=== PATIENT | female | born 1985 | race Two or more races ===

== ENCOUNTER 2017-05-09 04:45 | Inpatient (IN) | payer SELFPAY ==
[~2017-05-09] VITALS: Ht 154.9 cm; Wt 63.3 kg
[2017-05-09 05:38] VITALS: Ht 154.9 cm; Wt 63.3 kg
[2017-05-09 05:40] VITALS: BP 112/72; PULSE 64; RESP 18
[2017-05-09] MEDS ORDERED: PREN-93 PO (05:44)
[2017-05-09] MEDS ORDERED: LACTATED RINGER'S 1,000 ML IV PRN (05:45)
[2017-05-09] MEDS ORDERED: AMPICILLIN 2 GM/NS (PMX) 100 ML IV ONE (06:00)
[2017-05-09] MEDS ORDERED: OXYTOCIN 30 UNITS/LR 500 ML IV PRN (06:00)
[2017-05-09] MEDS ORDERED: CARBOPROST 250 MCG INJ IM PRN (06:00)
[2017-05-09] MEDS ORDERED: LIDOCAINE 1% (MPF) 30 ML INJ INJ PRN (06:00)
[2017-05-09] MEDS ORDERED: MISOPROSTOL 200 MCG TAB PR PRN (06:00)
[2017-05-09] MEDS ORDERED: METHYLERGONOVINE 0.2 MG INJ IM PRN (06:00)
[2017-05-09] MEDS ORDERED: BUTORPHANOL 2 MG INJ IV PRN ×2 (06:00)
[2017-05-09] MEDS ORDERED: HYDROCODONE/APAP (5/325) TAB PO PRN ×3 (06:00→19:30)
[2017-05-09] MEDS ORDERED: IBUPROFEN 600 MG TAB PO PRN (06:00)
[2017-05-09] MEDS ORDERED: OXYTOCIN 30 UNITS/LR 500 ML IV SCH ×2 (06:00→10:00)
--- NOTE | 2017-05-09 06:14 | RADRPT ---
PROCEDURE: ULTRASOUND OBSTETRICAL CLINICAL INDICATION: 32-year-old female and labor for position. TECHNIQUE: Multiple sonographic images of the pelvis were obtained. The images were reviewed on a PACS workstation. COMPARISON: No prior studies are available for comparison. FINDINGS: There is a single viable intrauterine gestation. Cardiac activity is present with 132 beats per min agdaagux. There is a vertex presentation. The placenta is posterior grade II. There is no evidence for an abruption or placenta previa. IMPRESSION: Single viable intrauterine gestation with vertex presentation. .Bridger Hart MD, MD Date Time Electronically viewed and signed by .Bridger Hart MD, MD on 05/09/2017 06:14 .Estela/
[2017-05-09] MEDS: LACTATED RINGER'S 1,000 ML IV SCH ×2 (06:45→13:39)
[2017-05-09 08:25] LABS: ABNORMAL IP MESSAGE 1; BASOPHILS % 0.3 % (0.0-2.0); EOSINOPHILS # 0.1 10^3/ul (0.0-0.5); EOSINOPHILS % 0.6 % (0.0-7.0); HEMATOCRIT 38.5 % (37.0-47.0); HEMOGLOBIN 13.5 g/dl (12.0-16.0); LYMPHOCYTES # 2.8 10^3/ul (0.8-2.9); LYMPHOCYTES % 31.6 % (15.0-51.0); MEAN CORPUSCULAR HGB CONC 35.1 g/dl (32.0-37.0); MEAN CORPUSCULAR VOLUME 94.1 fl (82.0-101.0); MEAN PLATELET VOLUME 14.3 fl (7.4-10.4); MONOCYTE # 0.8 10^3/ul (0.3-0.9); MONOCYTES % 8.7 % (0.0-11.0); NEUTROPHIL # 5.2 10^3/ul (1.6-7.5); NEUTROPHILS % 58.2 % (39.0-77.0); PLATELET COUNT 176 10^3/UL (140-415); RED BLOOD COUNT 4.09 10^6/ul (4.20-5.40); RED CELL DISTRIBUTION WIDTH 12.5 % (11.5-14.5); WHITE BLOOD COUNT 8.9 10^3/ul (4.8-10.8)
[2017-05-09 08:38] LABS: ALANINE AMINOTRANSFERASE 97 IU/L (13-69); ALBUMIN 3.7 g/dl (3.3-4.9); ALBUMIN/GLOBULIN RATIO 1.08; ALKALINE PHOSPHATASE 285 IU/L (42-121); ANION GAP 16 (8-16); ASPARTATE AMINO TRANSFERASE 77 IU/L (15-46); BILIRUBIN,INDIRECT 0.1 mg/dl (0-1.1); BILIRUBIN,TOTAL 0.1 mg/dl (0.2-1.3); BLOOD UREA NITROGEN 10 mg/dl (7-20); CALCIUM 9.6 mg/dl (8.4-10.2); CARBON DIOXIDE 20 mmol/L (21-31); CHLORIDE 107 mmol/L (97-110); CREATININE 0.56 mg/dl (0.44-1.00); GLUCOSE 80 mg/dl (70-220); POTASSIUM 3.7 mmol/L (3.5-5.1); SODIUM 139 mmol/L (135-144); TOTAL PROTEIN 7.1 g/dl (6.1-8.1)
[2017-05-09 08:43] LABS: INR 0.89; PT RATIO 0.9
[2017-05-09] MEDS ORDERED: AMPICILLIN 1 GM/NS (PMX) 50 ML IV SCH (10:00)
--- NOTE | 2017-05-09 10:37 | HP ---
Date/Time of Note Date/Time of Note DATE: 05/09/17 TIME: 10:30 OB - History Hx of Present Free Text/Dictation 32 years old female 0101 admitted to the hospital@ 38 weeks and 6 days with complaint of premature rupture of membrane in early labor. Pelvic examination on admission weeks 2 cm dilated 70% effaced vertex at -2 -3 station. Requires labor augmentation Chief Complaint: 38 weeks 6 days suspected premature rupture of membrane in early Estimated Due Date: May 22, 2017 : 3 Para: 1 Spontaneous : 1 Care: Good Care Ultrasounds: Normal mid trimester US Obstetrical Complications: None Past Family/Social History * Past Medical, Surgical, Family and Obstetric Histories reviewed from chart. Rubella: immune RPR/VDRL: Negative GBS Status: Negative HBsAG: Negative OB Admission Exam Vital Signs Vital Signs Vital Signs Date Time Temp Pulse Resp B/P Pulse Ox O2 Delivery O2 Flow Rate FiO2 05/09/17 05:40 98.6 64 18 112/72 Room Air Physical Exam HEENT: WNL Heart: Rhythm Normal Lungs: Clear, Equal Abdomen: WNL Extremities: Normal Reflexes: Normal Cervical Dilatation: 2cm Effacement: 75% Station: -2 Membranes: Ruptured Amniotic Fluid: Clear Heart Rate: 130's Accelerations: Accelerations Present Decelerations: No Decelerations Varibility: Moderate Contractions on Admission: >10 Minutes Apart Intensity: Mild Last 72 hours Lab Results CBC & BMP 05/09/17 07:20 Liver Function Test 05/09/17 07:20 Alanine Aminotransferase (ALT/SGPT) 97 H Albumin 3.7 Alkaline Phosphatase 285 H Aspartate Amino Transf (AST/SGOT) 77 H Direct Bilirubin 0.00 Total Protein 7.1 OB Assessment/Plan Reason for admission: other (38 weeks 6 days suspected premature rupture of membrane early labor) Other plan: 32 years old EDC May 17, 2017 admitted at 38 weeks and 6 days questionable rupture of membrane in early labor examination and admission cervix 2 cm dilated 70% effaced vertex at -3 station premature rupture of membrane mild contraction requires labor augmentation MAVERICK AMES MD May 09, 2017 10:37
[2017-05-09] MEDS ORDERED: FENTAnyl 2MCG/ML-ROPIV 0.2% 100 ML ONE (12:21)
[2017-05-09] MEDS ORDERED: FENTAnyl 2MCG/ML-ROPIV 0.2% 100 ML BAG EPI SCH (15:30)
[2017-05-09] MEDS ORDERED: NALOXONE (0.4 MG/ML) INJ IV PRN (15:30)
[2017-05-09] MEDS: OXYTOCIN 30 UNITS/LR 500 ML IV SCH ×3 (16:57→20:37)
--- NOTE | 2017-05-09 17:26 | LDN ---
Date/Time of Note Date/Time of Note DATE: 05/09/17 TIME: 17:03 Delivery Summary Vacuum-assisted vaginal delivery of a baby girl from occiput transverse position with 2 unsuccessful attempt by the laborist , when I arrived to assist the delivery I applied the kiwi vacuum extractor in proper position only 1 attempt, it was success full(, the reason and indication for the vacuum- assisted delivery, category 3 heart tracing with early deceleration. With each contraction, prolonged terminal bradycardia, maternal inefficient pushing due to possible epidural or fatigue, after the delivery of the baby's head shoulders delivered without any difficulty rest of the baby's body followed cord clamped and cut after stopped pulsation baby handed to the team for immediate attention, baby's 7 and 9. Placenta spontaneous expulsion inspected complete patient sustained small first-degree perineal laceration repaired with 3-0 chromic catgut estimated blood loss 200 cc Weeks of Gestation 38 weeks 6 days Assisted Vaginal Delivery: Vacuum Meconium: none Episiotomy: No Laceration repair: Small first-degree perineal laceration Anesthesia type: Epidural Sponge & Needle done & correct: Yes All needle counts correct: Yes Any foreign bodies felt in the: No Problems: Infant Delivery Information Sex Infant Sex: female Apgars 1 Minute: 7 5 Minute: 9 Umbilical Cord Cord Blood was obtained: Yes MAVERICK AMES MD May 09, 2017 17:14
--- NOTE | 2017-05-09 17:27 | QN ---
Documentation Comment I was called to assess the patient due to prolonged deceleration in heart tracing and immediate unavaiability of the attending physician. Attended to the bed side,. Noted the patient is receiving O2 and is on her left lateral position. Exam noted to be C/C/ + 2 . vertex Attending OB is on his way. Due to bradycardia and ineffective maternal pushing efforts discussed with the patient and her regarding VAVD. Risks and benefits discussed with the patient. and the patient agreed to proceed. Kiwi applied until Green zone on the vacuum device.leaking of the vaccum noted due to defective device after first attempt. Device changed. Second Kiwi applied due to ineffective pushing effort and terminal bradycardia and the device was pumped to Green Safe zone for about 1 min on the scalp. .pop off noted. attempted to push again. Primary OB attending, DR. Garcia arrived and took over the rest of the care. Please see the delivery note. EDDIE COOL MD May 09, 2017 17:27
[2017-05-09 18:30] VITALS: BP 113/57; PULSE 66; RESP 18
[2017-05-09 18:45] VITALS: BP 106/63; PULSE 66; RESP 18
[2017-05-09] MEDS ORDERED: ONDANSETRON 4 MG INJ IV PRN (19:30)
[2017-05-09] MEDS ORDERED: BENZOCAINE 20% 56 ML SPRAY TOP PRN (19:30)
[2017-05-09] MEDS ORDERED: LANOLIN 7 GM TUBE TOP PRN (19:30)
[2017-05-09] MEDS ORDERED: ACETAMINOPHEN 325 MG TAB PO PRN (19:30)
[2017-05-09] MEDS ORDERED: WITCH HAZEL/GLYCERIN PAD PR PRN (19:30)
[2017-05-09] MEDS ORDERED: DIBUCAINE 1% 30 GM OINT PR PRN (19:30)
[2017-05-09] MEDS ORDERED: OXYCODONE/ASPIRIN (4.88/325) TAB PO PRN ×2 (19:30)
[2017-05-09 20:00] VITALS: BP 102/58; PULSE 64; RESP 18
[2017-05-09] MEDS: SENNA/DOCUSATE NA (8.6MG/50MG) TAB PO SCH (20:37)
[2017-05-09] MEDS: IBUPROFEN 600 MG TAB PO SCH (23:15)
[2017-05-10] VITALS: BP 99/54; PULSE 56; RESP 20
[2017-05-10] MEDS: OXYTOCIN 30 UNITS/LR 500 ML IV SCH (00:50)
[2017-05-10 04:00] VITALS: BP 99/58; PULSE 52; RESP 20
[2017-05-10] MEDS: LACTATED RINGER'S 1,000 ML IV SCH ×2 (05:01→13:00)
[2017-05-10] MEDS: IBUPROFEN 600 MG TAB PO SCH ×4 (05:56→23:29)
[2017-05-10 08:30] VITALS: BP 103/57; PULSE 60; RESP 18
[2017-05-10 09:42] LABS: BASOPHILS % 0.2 % (0.0-2.0); EOSINOPHILS % 0.3 % (0.0-7.0); HEMATOCRIT 36.7 % (37.0-47.0); HEMOGLOBIN 12.6 g/dl (12.0-16.0); LYMPHOCYTES # 2.2 10^3/ul (0.8-2.9); LYMPHOCYTES % 16.8 % (15.0-51.0); MEAN CORPUSCULAR HEMOGLOBIN 33.2 pg (29.0-33.0); MEAN CORPUSCULAR HGB CONC 34.3 g/dl (32.0-37.0); MEAN CORPUSCULAR VOLUME 96.6 fl (82.0-101.0); MEAN PLATELET VOLUME 12.8 fl (7.4-10.4); MONOCYTE # 0.8 10^3/ul (0.3-0.9); MONOCYTES % 6.1 % (0.0-11.0); NEUTROPHIL # 10.1 10^3/ul (1.6-7.5); NEUTROPHILS % 76.2 % (39.0-77.0); PLATELET COUNT 127 10^3/UL (140-415); WHITE BLOOD COUNT 13.2 10^3/ul (4.8-10.8)
[2017-05-10] MEDS: SENNA/DOCUSATE NA (8.6MG/50MG) TAB PO SCH ×2 (11:58→21:25)
[2017-05-10 16:44] VITALS: BP 105/63; PULSE 63; RESP 18
[2017-05-10 20:00] VITALS: BP 103/57; PULSE 67; RESP 20
[2017-05-11 03:06] VITALS: BP 110/64; PULSE 70; RESP 20
[2017-05-11] MEDS: IBUPROFEN 600 MG TAB PO SCH ×2 (05:15→12:28)
[2017-05-11 08:00] VITALS: BP 109/50; PULSE 54; RESP 18
[2017-05-11] MEDS ORDERED: MEASLES,MUMPS,RUBELLA VACCINE INJ SC* ONE (09:00)
--- NOTE | 2017-05-11 09:38 | PD.PPDC ---
CASE REVIEWER Discharge Instruction Condition Patient Condition: Good Diet Diet: Resume Regular Diet Activity/Restrictions Activity: Normal Activity May Shower Restrictions: No Exercising No Lifting No Driving No Sexual Activity Nothing in the Vagina No [place] No Tampons, douche Follow-up Follow-up with Physician: 2, Week/Weeks Provider Information: instructions given recommended to make appointment to be seen at the clinic in 2 weeks Return to clinic for MANAGER WOUND Instructions: Fever greater than 101 Chills Worsening abdominal pain Excessive Vaginal Bleeding More than 2 pads per hour Unable to tolerate diet OB Instructions: Breast Tenderness Depression Blurried Vision Headache MAVERICK AMES MD May 11, 2017 09:38
--- NOTE | 2017-05-11 09:40 | DS ---
Date/Time of Note Date/Time of Note DATE: 05/11/17 TIME: 09:39 Discharge Summary Admission/Discharge Info Admit Date/Time May 09, 2017 at 05:22 Discharge Date/Time May 11, 2017 at 9:30 AM Discharge Diagnosis Post normal vaginal delivery day 2 Patient Condition: Good Procedures Normal vaginal delivery Hx of Present Illness Term admitted to the hospital for delivery Hospital Course Satisfactory uneventful Home Meds Reported Medications Vit No.124/Iron/FA ( Vitamin Tablet) 1 Each Tablet, 1 EACH PO, TAB 05/09/17 Follow-up Plan instructions given recommended to make appointment to be seen at the clinic in 2 weeks Primary Care Provider Care Physician No Primary Time spent on discharge: < 30 minutes MAVERICK AMES MD May 11, 2017 09:40
[2017-05-11] MEDS: SENNA/DOCUSATE NA (8.6MG/50MG) TAB PO SCH (09:42)
== END 2017-05-11 12:32 | disposition home or self-care (01) | DRG 775 ==
LOC: OBT 04:45 → L-D 04:45 → OBT 05:22 → L-D 05:22 → PP1 18:44
PROVIDERS: ADMIT Obstetrics & Gynecology; ATTEND Obstetrics & Gynecology
PROC: 10D07Z6 Extraction of Products of Conception, Vacuum, Via Natural or Artificial Opening (ICD-10-PCS; principal; 2017-05-09)
PROC: 0HQ9XZZ Repair Perineum Skin, External Approach (ICD-10-PCS; 2017-05-09)
PROC: 3E033VJ Introduction of Other Hormone into Peripheral Vein, Percutaneous Approach (ICD-10-PCS; 2017-05-09)
DX: O70.0 First degree perineal laceration during delivery (principal); O76 Abnormality in fetal heart rate and rhythm complicating labor and delivery; O66.5 Attempted application of vacuum extractor and forceps; Z3A.38 38 weeks gestation of pregnancy
CPT/HCPCS: 36415; 62319; 76815; 80053; 85025; 85610; 85730; 86592; 86900; 86901; 87340; 99464; G0463; J2590; J3010; J7120

== ENCOUNTER 2018-12-11 12:40 | Inpatient (IN) | payer SELFPAY ==
[~2018-12-11] VITALS: Ht 152.4 cm; Wt 61.3 kg
[~2018-12-11 12:40] MED LIST: PREN-93 PO
[2018-12-11 13:02] VITALS: Ht 152.4 cm; Wt 61.3 kg
[2018-12-11 13:03] VITALS: BP 104/59; PULSE 68; RESP 18
--- NOTE | 2018-12-11 13:25 | TRIAGE ---
OB Triage Datetime Report Generated by CPN: 12/11/2018 13:25 Datetime: 12/11/2018 13:19 Time of Arrival: 12/11/2018 13:19 EGA: 36.4 Arrived By: Stretcher Arrived From: Other Unit in Hospital Datetime: 12/11/2018 13:12 Labor Evaluation Frequency: 2 Monitor Mode: External Duration (sec)2399: 50-60 Quality: Strong Pattern: Normal: <= 5 Contractions in 10 Minutes Resting Tone [place]: Relaxed Heart Rate FHR Baseline Rate: 145 Monitor Mode: External US Variability: Moderate 6-25 bpm Accelerations: 15X15 Decelerations: None Category: Category I Pain Assessment Pain Scale: 6 Pain Presence: Intermittent Pain Type: Contraction Pain Location: Abdomen Pain Goal: 3 Datetime: 12/11/2018 13:00 Assessment Type: Triage Time of Arrival: 12/11/2018 12:35 EGA: 36.4 Arrived By: Ambulatory Arrived From: Home Chief Complaint: uc @ Movement: Present Contractions: Regular Rupture of Membranes: Denies Vaginal Bleeding: None Vaginal Discharge: Denies Recent Sexual Intercouse: Denies Abdominal Trauma: Not Applicable Patient Complaints: Contractions Time Provider Notified: 12/11/2018 12:55 Provider Notified: Initial Plan: r/o ptl Maternal Assessment Level of Consciousness: Keenly Alert, Responsive DTR's/Clonus: DTRs 2+; No Clonus Headache: Denies Blurred Vision: No Respiratory Effort: Unlabored; Regular Rhythm; Equal Expansion Breath Sounds, Left: Clear and Equal Breath Sounds, Right: Clear and Equal Nausea/Vomiting: Denies RUQ Epigastric Pain: Denies Lower Extremities Edema: None Degree: None Upper Extremities Edema: None Degree: None Facial Edema: None Fall Risk Assessment History of Falling: (0) No Secondary Diagnosis: (0) No Ambulatory Aid: (0) Bedrest/Nurse Assist IV Therapy: (0) No Gait: (0) Normal/Bedrest/Immobile Mental Status: (0) Oriented to Own Ability Fall Score: 0 Fall Risk Score Definition: No Risk: No action required Datetime: 12/11/2018 12:54 Vaginal Exam Dilatation (cms): 4.5 Effacement (%): 90 Station: -3 Exam By: victoria
[2018-12-11] MEDS ORDERED: OXYTOCIN 30 UNITS/LR 500 ML IV PRN ×3 (13:30→23:30)
[2018-12-11] MEDS ORDERED: CEFAZOLIN 2 GM/50 ML (PMX) 50 ML IVPB SCH (13:30)
[2018-12-11] MEDS ORDERED: FENTAnyl 50 MCG/ML VIAL IV ONE (13:30)
[2018-12-11] MEDS ORDERED: TERBUTALINE 1 MG/ML INJ SC ONE (13:30)
[2018-12-11] MEDS ORDERED: METHYLERGONOVINE 0.2 MG INJ IM PRN ×3 (13:30→23:30)
[2018-12-11] MEDS ORDERED: MISOPROSTOL 200 MCG TAB PR PRN ×3 (13:30→23:30)
[2018-12-11] MEDS ORDERED: CARBOPROST 250 MCG INJ IM PRN ×3 (13:30→23:30)
[2018-12-11] MEDS ORDERED: TERBUTALINE 1 ML ONE (13:30)
[2018-12-11] MEDS: LACTATED RINGER'S 1,000 ML IV SCH ×4 (13:34→22:20)
[2018-12-11] MEDS ORDERED: AMPICILLIN 2 GM/NS (PMX) 100 ML IV ONE (15:00)
[2018-12-11] MEDS ORDERED: MINERAL OIL LIGHT 10 ML VIAL TOP ONE (15:00)
[2018-12-11] MEDS ORDERED: OXYTOCIN 30 UNITS/LR 500 ML IV SCH ×2 (15:00)
[2018-12-11] MEDS ORDERED: IBUPROFEN 600 MG TAB PO PRN (15:00)
[2018-12-11] MEDS ORDERED: LIDOCAINE 1% (MPF) 30 ML INJ INJ PRN (15:00)
[2018-12-11] MEDS ORDERED: FENTAnyl 2MCG/ML-ROPIV 0.2% 100 ML ONE (15:29)
--- NOTE | 2018-12-11 15:48 | PREAC ---
Date/Time of Note Date/Time of Note DATE: 12/11/18 TIME: 15:48 Anesthesia Eval and Record Evaluation Time Pre-Procedure Interview DATE: 12/11/18 TIME: 15:48 Age 33 Sex female NPO: Other Preoperative diagnosis labor pain Planned procedure epidural Past Medical History Past Medical History: None Surgery & Anesthesia Issues No known issue Meds Anticoagulation: No Beta Daniela within 24 hr: No Reason Beta Daniela not given: Pt. not on B-Daniela Reported Medications Vit No.124/Iron/FA ( Vitamin Tablet) 1 Each Tablet, 1 EACH PO, TAB 05/09/17 Current Medications Lactated Ringer's 1,000 ml @ 125 mls/hr Q8H IV Last administered on 12/11/18at 15:35; Admin Dose 125 MLS/HR; Start 12/11/18 at 13:21 Oxytocin/Lactated Ringer's 500 ml @ 0 mls/hr ONCE PRN IV .VAGINAL BLEEDING; Start 12/11/18 at 13:30 Ampicillin 100 ml @ 100 mls/hr ONCE ONCE IV Last administered on 12/11/18at 15:36; Admin Dose 100 MLS/HR; Start 12/11/18 at 15:00; Stop 12/11/18 at 15:59 Ampicillin 50 ml @ 100 mls/hr Q4H IV ; Start 12/11/18 at 19:00 Lidocaine (Xylocaine 1% (Mpf)) 30 ml ONCE PRN INJ .EPISIOTOMY; Start 12/11/18 at 15:00 Oxytocin/Lactated Ringer's 500 ml @ 500 mls/hr ONCE POST IV ; Start 12/11/18 at 15:00 Oxytocin/Lactated Ringer's 500 ml @ 125 mls/hr POST IV ; Start 12/11/18 at 15:00 Ibuprofen (Motrin) 600 mg ONCE PRN PO .PAIN 1-5; Start 12/11/18 at 15:00 Oxytocin/Lactated Ringer's 500 ml @ 0 mls/hr ONCE PRN IV .VAGINAL BLEEDING; Start 12/11/18 at 15:00 Methylergonovine Maleate (Methergine) 0.2 mg ONCE PRN IM .VAGINAL BLEEDING; Start 12/11/18 at 15:00 Carboprost Tromethamine (Hemabate) 250 mcg ONCE PRN IM .VAGINAL BLEEDING; Start 12/11/18 at 15:00 Misoprostol (Cytotec) 1,000 mcg ONCE PRN MS .VAGINAL BLEEDING; Start 12/11/18 at 15:00 Meds reviewed: Yes Allergies Coded Allergies: No Known Allergy (Unverified , 05/09/17) Allergies Reviewed: Yes Labs/Studies Labs Reviewed: Reviewed by anesthesiologist Result Diagram: 12/11/18 1337 Laboratory Tests 12/11/18 13:37 Blood Bank Test 12/11/18 13:37 Antibody Screen NEGATIVE Blood Type O POSITIVE Rh Immune Globulin Candidate NO test: N/A Pre-procedure Exam Last vitals Vital Signs Date Temp Pulse Resp B/P (MAP) Pulse Ox O2 O2 Flow FiO2 Time Delivery Rate 12/11/18 98.1 68 18 104/59 Room Air 13:03 (74) Airway: Adequate mouth opening, Adequate thyromental dist Mallampati: Mallampati III Teeth: Normal Lung: Normal Heart: Normal ASA Physical Status ASA physical status: 2 Emergency: None Pre-operative Attestations Prior to commencing anesthesia and surgery, the patient was re-evaluated, there was verification of: *The patient's identity *The results of appropriate recent lab work and preoperative vital signs *The above evaluation not changing prior to induction *Anesthetic plan, risk benefits, alternative and complications discussed with patient/family; questions answered; patient/family understands, accepts and wishes to proceed. ELENI GALARZA DO Dec 11, 2018 15:48
[2018-12-11] MEDS ORDERED: FENTAnyl 2MCG/ML-ROPIV 0.2% 100 ML BAG EPI SCH (16:00)
[2018-12-11] MEDS ORDERED: NALOXONE (0.4 MG/ML) INJ IV PRN (16:00)
[2018-12-11] MEDS ORDERED: AMPICILLIN 1 GM/NS (PMX) 50 ML IV SCH (19:00)
--- NOTE | 2018-12-11 19:43 | PAC ---
Date/Time of Note Date/Time of Note DATE: 12/11/18 TIME: 19:42 Post-Anesthesia Notes Post-Anesthesia Note Last documented vital signs Vital Signs Date Temp Pulse Resp B/P (MAP) Pulse Ox O2 O2 Flow FiO2 Time Delivery Rate 12/11/18 98 75 20 110/60 Room Air 1939 Activity: WNL Respiratory function: WNL Cardiovascular function: WNL Mental status: Baseline Pain reasonably controlled: Yes Hydration appropriate: Yes Nausea/Vomiting absent: Yes ELENI GALARZA DO Dec 11, 2018 19:43
--- NOTE | 2018-12-11 20:19 | HP ---
Date/Time of Note Date/Time of Note DATE: 12/11/18 TIME: 20:11 OB - History Hx of Present Free Text/Dictation 33 years old -0-0-2 with single intrauterine at 36 weeks 4 days complaining of uterine contractions. She states good movement. She denies nausea, vomiting, shortness of breath, chest pain, headache, visual changes, vaginal bleeding or LOF. Chief Complaint: Uterine contractions Estimated Due Date: Jan 06, 2019 : 3 Para: 2 Spontaneous : 0 Therapeutic : 0 Care: Good Care Obstetrical Complications: None Medical Complications: None Past Family/Social History * Past Medical, Surgical, Family and Obstetric Histories reviewed from chart. Blood Type: O+ Rubella: immune RPR/VDRL: Negative GBS Status: Unknown HBsAG: Negative OB Admission Exam Vital Signs Vital Signs Vital Signs Date Temp Pulse Resp B/P (MAP) Pulse Ox O2 O2 Flow FiO2 Time Delivery Rate 12/11/18 98.1 68 18 104/59 Room Air 13:03 (74) Physical Exam HEENT: WNL Heart: Rhythm Normal Lungs: Clear Abdomen: WNL Extremities: Normal Cervical Dilatation: 4cm Effacement: Other (The percentile) Station: Ballotable Membranes: Intact Heart Rate: 140's Accelerations: Accelerations Present Decelerations: No Decelerations Varibility: Moderate Contractions on Admission: < 5 Minutes Apart Intensity: Moderate Last 72 hours Lab Results CBC & BMP 12/11/18 13:37 OB Assessment/Plan Other plan: 33 years old 3 para 2-0-0-2 with single intrauterine at 36 weeks and 4 days in labor -FHR: No sign of metabolic acidosis- Category I -Continuous EFM, toco -SVE: 45/90/high/breech -Ultrasound performed which can feel to double footling breech presentation -CBC& blood type and screen -Analgesia options with R/B/A discussed in detail with patient -Epidural per patient request -Please see the orders -O+/Rubella: Immune -GBS: unknown-ampicillin ordered -External cephalic version versus primary delivery with risk-benefit alternatives discussed in detail with patient and her both expressed understanding all of their questions answered she agreed with the external cephalic version. Terbutaline subcut and fentanyl 100 mg IV given. Operating room was ready. Then under ultrasound external cephalic version performed which was successful. Cephalic presentation confirmed by plating technician. Patient transferred from triage to labor and delivery. Admission, procedures, expectations, risks and possible complications have been discussed in detail with the patient. Risk of vaginal delivery including but not limited to bleeding, infection, cervical laceration, placental retention, injury to fetus, blood transfusion, blood transfusion related infection, risk of anesthesia, adhesion, cervical laceration, episiotomy/laceration, possible delivery with risk of bleeding, infection, injury to other organs (bowel, bladder, ureter, vessels, nerves), injury to fetus, blood transfusion, blood transfusion related infection, risk of anesthesia, scar and hernia formation, needs for future , removal of uterus or any other indicated surgery discussed with the patient. She expressed understanding and repeats the risks. All of her questions were answered. She signed the informed consent. PHYSICIAN'S VERIFICATION OF INFORMED CONSENT The patient and her counseled regarding the procedure, its indications, risks, potential complications and alternatives and any questions were answered. Consent was obtained. PLANNED PROCEDURE/TREATMENT: Vaginal delivery, episiotomy, repair of laceration possible delivery Addendum: Patient seen again she has regular uterine contraction every 2-3 minutes. heart rate category 1.SVE: 8/90/high/breech/intact. Again external cephalic version discussed with patient and her both expressed understanding and has agreed with the procedure. The patient has epidural. External cephalic version performed which was successful. Amniotic membrane rupture/clear. Continue current management. CURT GODDARD Dec 11, 2018 20:19
--- NOTE | 2018-12-11 20:21 | LDN ---
Date/Time of Note Date/Time of Note DATE: 12/11/18 TIME: 20:19 Delivery Summary 33 years old 3 para 2-0-0-2 with single intrauterine at 36 weeks and 4 days delivered a viable male over intact perineum. Nose and mouth suctioned. Rest of body delivered. Cord clamp and caught after stopping pulsation. Baby given to the nurse. Placenta delivered intact and spontaneously with three-vessel cord. Patient tolerated procedure well Time of delivery 17:43 Weight 6pound 1 ounces 9 at 1 minutes and 9 at 5 minutes EBL 300 mL, Pitocin and Methergine given. Weeks of Gestation 36 weeks and 4 days Placenta Delivered: Spontaneously Meconium: none Episiotomy: No Estimated blood loss: 300 Sponge & Needle done & correct: Yes All needle counts correct: Yes Any foreign bodies felt in the: No Infant Delivery Information Sex Infant Sex: male Apgars 1 Minute: 9 5 Minute: 9 10 Minute: 9 Suctioning Nose & mouth suctioned at ray: Yes Umbilical Cord Umbilical cord with: 3 Vessels Cord presentations: no nuchal cord Cord Blood was obtained: Yes Mother & Baby Disposition Disposition Mom & Baby to Maternity; Good: Yes CURT GODDARD Dec 11, 2018 20:21
[2018-12-11 20:30] VITALS: BP 90/56; PULSE 64; RESP 18
[2018-12-11] MEDS: DEXTROSE 5%-LR 1,000 ML IV SCH (23:02)
[2018-12-11] MEDS: LACTATED RINGER'S 1,000 ML IV* SCH (23:02)
[2018-12-11] MEDS ORDERED: LANOLIN HPA 1 PKT TOP PRN (23:30)
[2018-12-11] MEDS ORDERED: MAGNESIUM HYDROXIDE 30ML CUP PO PRN (23:30)
[2018-12-11] MEDS ORDERED: ZOLPIDEM 5 MG TAB PO PRN (23:30)
[2018-12-11] MEDS ORDERED: ACETAMINOPHEN 325 MG TAB PO PRN (23:30)
[2018-12-11] MEDS ORDERED: ONDANSETRON 4 MG INJ IV PRN (23:30)
[2018-12-11] MEDS ORDERED: DIBUCAINE 1% 30 GM OINT TOP PRN (23:30)
[2018-12-11] MEDS ORDERED: DIPHENHYDRAMINE 50 MG INJ IV PRN (23:30)
[2018-12-11] MEDS ORDERED: OXYCODONE/ASPIRIN (4.88/325) TAB PO PRN (23:30)
[2018-12-12] VITALS: BP 104/64; PULSE 57; RESP 18
[2018-12-12] MEDS: SENNA/DOCUSATE NA (8.6MG/50MG) TAB PO PRN ×2 (00:14→20:37)
[2018-12-12] MEDS: BENZOCAINE 20% 56 ML SPRAY TOP PRN ×2 (00:14→20:37)
[2018-12-12] MEDS: WITCH HAZEL/GLYCERIN PAD PR PRN ×2 (00:14→20:37)
[2018-12-12 04:24] VITALS: BP 102/60; PULSE 62; RESP 18
[2018-12-12] MEDS: IBUPROFEN 600 MG TAB PO SCH ×4 (05:12→17:50)
[2018-12-12] MEDS: DEXTROSE 5%-LR 1,000 ML IV SCH ×2 (07:02→15:02)
[2018-12-12] MEDS: LACTATED RINGER'S 1,000 ML IV* SCH ×2 (07:02→15:02)
[2018-12-12 08:00] VITALS: BP 83/55; PULSE 64; RESP 18
[2018-12-12 12:00] VITALS: BP 88/50; PULSE 51; RESP 16
[2018-12-12 16:00] VITALS: BP 85/54; PULSE 72; RESP 18
[2018-12-12 20:30] VITALS: BP 86/51; PULSE 55; RESP 18
--- NOTE | 2018-12-12 23:24 | PN ---
Date/Time of Note Date/Time of Note DATE: 12/12/18 TIME: 23:22 OB Subjective Subjective Subjective Patient reports decreased vaginal bleeding. Breast-feeding. Ambulating. Den ies any chest pain, shortness of breath. Denies any complaint. OB Objective Objective Objective General appearance: Alert and oriented x4 does not appear to be in any acute distress Abdomen: Soft, fundus firm and palpable 2 cm below the umbilicus and nontender Breast: No evidence of mastitis or fissure Extremities: No calf tenderness, no click no edema no cord palpable VS - Last 72 Hours, by Label Date Temp Pulse Resp B/P (MAP) Pulse Ox O2 O2 Flow FiO2 Time Delivery Rate 12/12/18 98.2 72 18 85/54 (64) 16:00 12/12/18 97.7 51 16 88/50 (63) Room Air 12:00 12/12/18 97.9 64 18 83/55 (64) 08:00 12/12/18 98.2 62 18 102/60 Room Air 04:24 (74) 12/12/18 98.0 57 18 104/64 Room Air 00:00 (77) 12/11/18 98.2 64 18 90/56 (67) Room Air 20:30 12/11/18 98.1 68 18 104/59 Room Air 13:03 (74) Laboratory Tests Test 12/12/18 06:21 12/12/18 07:06 Lab Scanned Report REFERENCE LAB White Blood Count 14.8 #H Red Blood Count 3.78 L Hemoglobin 12.1 Hematocrit 34.9 L Mean Corpuscular Volume 92.3 Mean Corpuscular Hemoglobin 32.0 Mean Corpuscular Hemoglobin Concent 34.7 Red Cell Distribution Width 13.1 Platelet Count 169 Mean Platelet Volume 13.5 H Immature Granulocytes % 0.300 Neutrophils % 73.3 Lymphocytes % 18.6 Monocytes % 7.4 Eosinophils % 0.3 Basophils % 0.1 Nucleated Red Blood Cells % 0.0 Immature Granulocytes # 0.050 H Neutrophils # 10.8 H Lymphocytes # 2.8 Monocytes # 1.1 H Eosinophils # 0.0 Basophils # 0.0 Nucleated Red Blood Cells # 0.0 OB Assessment/Plan Other Assessment: day #1 Status post Hypertension, asymptomatic Continue watch closely No evidence of bleeding. Hemodynamically stable Late care Doing well Routine care EDDIE COOL MD Dec 12, 2018 23:24
[2018-12-13 03:50] VITALS: BP 80/48; PULSE 52; RESP 18
[2018-12-13] MEDS: IBUPROFEN 600 MG TAB PO SCH ×3 (05:32→12:03)
[2018-12-13 08:00] VITALS: BP 100/65; PULSE 58; RESP 18
[2018-12-13] MEDS ORDERED: MEASLES,MUMPS,RUBELLA VACCINE INJ SC* ONE (09:00)
[2018-12-13] MEDS ORDERED: DIPHTH/TET/ACEL PERTUSS (ADULT) 0.5 ML VIAL IM* ONE (09:00)
--- NOTE | 2018-12-13 14:05 | PD.PPDC ---
DRIER FEEDER Discharge Instruction Diagnosis [id number] Final Diagnosis: Hqecy2e s/p Condition [id number] Patient Condition: Snzff6o Stable Diet Sltwa7Bf Diet: Pmcsp7d Resume Regular Diet Activity/Restrictions [id number] Activity: Ukkik7r May Shower [id number] Restrictions: Jostc0a No Lifting No Sexual Activity Nothing in the Vagina No [place] No Tampons, douche Follow-up Follow-up with Physician: 2, Week/Weeks Return to clinic for Ojlwk6Or PUBLIC SERVICES ASSISTANT Instructions: Otvxy6v Fever greater than 101 Chills Excessive Vaginal Bleeding More than 2 pads per hour Unable to tolerate diet [id number] OB Instructions: Qkwrx1n Breast Tenderness Depression Blurried Vision Headache CRISTINE MITCHELL MD Dec 13, 2018 14:04
--- NOTE | 2018-12-13 14:07 | DS ---
Date/Time of Note Date/Time of Note DATE: 12/13/18 TIME: 14:06 Obstetrical Discharge Record Final Diagnosis Final Diagnosis: delivered Vaginal Delivery Obstetrical Delivery: Spontaneous Complications Augmentation: No Induction: No Rupture of Membranes: No Condition on Discharge Physical Assessment Last Vitals: vss afebrile Voiding: Yes Bowel Movement: Yes Breast: Soft, non-tender Fundus: Firm Calf Tenderness: No Patient Condition: Stable CRISTINE MITCHELL MD Dec 13, 2018 14:07
[2018-12-13 16:05] VITALS: BP 83/50; PULSE 51; RESP 18
--- NOTE | 2018-12-14 18:51 | DELSUM ---
Delivery Summary A-C Datetime Report Generated by CPN: 12/14/2018 18:50 DELIVERY PERSONNEL Manager Background: Justyn, Ana MATERNAL INFORMATION Delivery Anesthesia: Epidural Medications in Delivery: LR with 30 Units Pitocin Delivery QBL (ml): 300 Placenta Cultured: No Maternal Complications: None Other Maternal Complications: Jazmine Cubil LABOR SUMMARY EDC: 01/04/2019 00:00 No. Babies in Womb: 1 Attempted: No Labor Anesthesia: Epidural LABOR INFORMATION Reason for Induction: Not Applicable Onset of Labor: 12/11/2018 07:00 Complete Dilatation: 12/11/2018 17:09 Group B Beta Strep: Not Done Antibiotics # of Doses: Ampicillin x1 Antibiotics Time of Last Dose: 12/11/2018 15:36 Steroids Given: None Reason Steroids Not Administered: Not Applicable MEMBRANES Membranes Rupture Method: Artificial Rupture of Membranes: 12/11/2018 16:30 Length of Rupture (hr): 1.22 Amniotic Fluid Color: Clear Amniotic Fluid Amount: Large Amniotic Fluid Odor: None STAGES OF LABOR Stage 1 hr: 10 Stage 1 min: 9 Stage 2 hr: 0 Stage 2 min: 34 Stage 3 hr: 0 Stage 3 min: 4 Total Time in Labor hr: 10 Total Time in Labor min: 47 VAGINAL DELIVERY Episiotomy: None Laceration Extension: N/A Laceration Type: None Laceration Repair: Not Applicable Initial Vag Sponge Count: 10 Final Vag Sponge Count: 10 Initial Vag Sharps Count: 1 Final Vag Sharps Count: 1 Sponge Count Correct: Yes Sharps Count Correct: Yes BABY A INFORMATION Infant Delivery Date/Time: 12/11/2018 17:43 Method of Delivery: Vaginal Born in Route : No : N/A Forceps: N/A Vacuum Extraction: N/A Shoulder Dystocia : No SHOULDER DYSTOCIA BABY A Delivery Date/Time: 12/11/2018 17:43 PRESENTATION/POSITION BABY A Presentation: Cephalic Cephalic Presentation: Vertex Vertex Position: Right Occipital Posterior Breech Presentation: N/A PLACENTA INFORMATION BABY A Placenta Delivery Time : 12/11/2018 17:47 Placenta Method of Delivery: Spontaneous Placenta Status: Delivered SCORES BABY A Heart Rate 1 min: >100 bpm Resp Effort 1 min: Good Cry Reflex Irritability 1 min: Cough/Sneeze/Pulls Away Muscle Tone 1 min: Active Motion Color 1 min: Body [place], Extremit Blue Resuscitation Effort 1 min: Tactile Stimulation SCORE 1 MIN: 9 Heart Rate 5 min: >100 bpm Resp Effort 5 min: Good Cry Reflex Irritability 5 min: Cough/Sneeze/Pulls Away Muscle Tone 5 min: Active Motion Color 5 min: Body [place], Extremit Blue Resuscitation Effort 5 min: Tactile Stimulation SCORE 5 MIN: 9 INFORMATION BABY A Gestational Age at Delivery: 36.4 Gestational Status: Late - 34- 36.6 Weeks Outcome : Liveborn, with signs of life Infant Condition : Stable Infant Sex: Male IDENTIFICATION/MEDS BABY A ID Band Number: [id number] ID Band Location: Right Leg; Left Arm Sensor Applied: Yes Sensor Number: [id number] Sensor Location : Cord Clamp Vitamin K Given : Not Given Erythromycin Given: Not Given WEIGHT/LENGTH BABY A Infant Birthweight (gm): 2760 Infant Weight (lb): 6 Weight (oz): 1 Infant Length (in): 19.00 Length (cm): 48.26 CORD INFORMATION BABY A No. Cord Vessels: 3 Nuchal Cord : N/A Cord Blood Taken: Yes Suction: Mouth; Nose ASSESSMENT BABY A Infant Complications: None Physical Findings at Delivery: Within Normal Limits Respirations: Appears Normal Production Sound Mixer/ALS Called : No Care By: Daniel Markham RN Transferred To: Remains with Mother
== END 2018-12-13 18:50 | disposition home or self-care (01) | DRG 807 ==
LOC: OBT 12:40 → L-D 12:40 → OBT 13:10 → L-D 13:13 → PP1 20:25
PROVIDERS: ADMIT Obstetrics & Gynecology; ATTEND Obstetrics & Gynecology
PROC: 10E0XZZ Delivery of Products of Conception, External Approach (ICD-10-PCS; principal; 2018-12-11)
PROC: 3E033VJ Introduction of Other Hormone into Peripheral Vein, Percutaneous Approach (ICD-10-PCS; 2018-12-11)
DX: O60.13X0 Preterm labor second trimester with preterm delivery third trimester, not applicable or unspecified (principal); Z37.0 Single live birth; Z3A.36 36 weeks gestation of pregnancy
CPT/HCPCS: 59412; 62322; 76815; 76816; 85025; 85610; 85730; 86592; 86850; 86900; 86901; 87340; 90715; G0463; J0290; J2210; J2590; J3010; J3105; J7120; J7121